=== PATIENT | female | born 1980 ===

== ENCOUNTER → 2021-03-04 | Outpatient (CLI) | payer BC, OTHER | LOC: SJCVCIMAG 10:12 | PROVIDERS: ATTEND Internal Medicine Cardiovascular Disease | DX: R07.89 Other chest pain (principal); R00.2 Palpitations; R00.0 Tachycardia, unspecified ==

== ENCOUNTER → 2021-03-04 | Outpatient (CLI) | payer OTHER | LOC: CAT 11:41 | PROVIDERS: ATTEND Internal Medicine Cardiovascular Disease | DX: Z13.6 Encounter for screening for cardiovascular disorders (principal); I25.10 Atherosclerotic heart disease of native coronary artery without angina pectoris; E78.00 Pure hypercholesterolemia, unspecified ==

== ENCOUNTER → 2021-09-23 | Outpatient (CLI) | payer BC, OTHER | LOC: SJCVCIMAG 12:44 | PROVIDERS: ATTEND Internal Medicine Cardiovascular Disease | DX: I42.9 Cardiomyopathy, unspecified (principal) ==